=== PATIENT | female | born 1995 | race Caucasian/White ===

== ENCOUNTER 2024-07-15 08:34 | Outpatient (CLI) | payer OTHER | END 2024-07-15 08:35 | disposition home or self-care (01) | LOC: BICRAD 08:34 | PROVIDERS: ATTEND Family Medicine | DX: J45.909 Unspecified asthma, uncomplicated (principal); G40.909 Epilepsy, unspecified, not intractable, without status epilepticus; F39 Unspecified mood [affective] disorder; K04.5 Chronic apical periodontitis; E66.9 Obesity, unspecified; Z97.8 Presence of other specified devices; Z90.89 Acquired absence of other organs | CPT/HCPCS: 71046 ==